=== PATIENT | male | born 1990 | race African-American/Black ===

== ENCOUNTER 2024-11-05 07:05 | Emergency (ER) | payer BC ==
--- NOTE | 2024-11-05 07:57 | RAD REPORT ---
EXAMINATION: XR PELVIS CLINICAL INDICATION: R hip injury TECHNIQUE: AP Pelvis examination was obtained. COMPARISON: No prior exam. FINDINGS: No evidence of fracture or dislocation. Normal alignment. No radiographic evidence of AVN seen. IMPRESSION: No significant bone or joint abnormality.
--- NOTE | 2024-11-05 08:01 | EDPHYS ---
Physician Documentation [facility] Name: Angel Francis Age: 34 yrs Sex: Male : 1990 Arrival Date: 11/05/2024 Time: 07:05 Bed 7 Private MD: ED Physician Danish Wesley HPI: 11/05 07:19 This 34 yrs old Black Male presents to ER via Ambulatory with complaints of Hip Pain. ec2 07:19 Patient arrives today for evaluation of right hip pain. Reports that he has been having ec2 pain with movement and ambulation in the past several days. Patient reports no specific falls injuries or trauma. Reports otherwise no other concerns.. Historical: - Allergies: 07:16 No Known Allergies; ll1 - Home Meds: 07:16 None [Active]; ll1 - PSHx: 07:16 None; ll1 - Immunization history:: Adult Immunizations up to date. - Infectious Disease History:: Denies. - Social history:: Smoking status: Patient denies any tobacco usage or history of. ROS: 07:19 Constitutional: as per hpi ec2 Exam: 07:19 Constitutional: GEN: NAD Head: atraumatic Eyes: EOMI Ears: External ears are ec2 normal. CV: regular rate LUNGS: no respiratory distress ABD: non-distended, no CVA TTP SKIN: no evidence of rashes MSK: no evidence of trauma, anterior right upper thigh with TTP without deformities or crepitus appreciated. Intact range of motion of the right hip. Vital Signs: 07:17 BP 126 / 93; Pulse 86; Resp 16; Temp 98.8; Pulse Ox 97% ; Weight 81.65 kg; Height 5 ft. ll1 8 in. ; Pain 8/10; 08:25 BP 115 / 89; Pulse 85; Resp 16; Pulse Ox 97% on R/A; ll1 07:17 Body Mass Index 27.37 (81.65 kg, 172.72 cm) ll1 07:17 Pain Scale: Adult ll1 MDM: 07:14 Medical Screening Exam initiated ec2 07:19 Data reviewed: vital signs, nurses notes. ED course: Patient arrives today for ec2 evaluation of right hip pain. Emanation yields MSK findings as above. Will obtain radiograph. Suspect MSK pain, doubt fracture, doubt dislocation, possible contusion.. 08:00 ED course: Hip x-ray independently reviewed and interpreted by me, shows no bony ec2 fracture. Patient otherwise well-appearing in no acute distress with good range of motion, doubt other process like septic joint, occult fracture given no underlying injury. Will discharge home. Return precautions given instructed follow-up PCP.. 11/05 07:19 Order name: Pelvis XRAY; Complete Time: 08:00 ec2 Administered Medications: 08:15 Drug: Methocarbamol PO 500 mg PO once Route: PO; ll1 08:33 Follow up: Response: No adverse reaction ll1 08:15 Drug: Lidoderm Topical Patch 5 % (700 mg/patch) 1 patches Topical once; leave on for 12 ll1 hours; cover most painful area; may cut into smaller pieces Route: Topical; Site: affected area; 08:33 Follow up: Response: No adverse reaction ll1 Disposition Summary: 11/05/24 08:00 Discharge Ordered Notes: Location: Home ec2 Condition: Stable ec2 Diagnosis - Thigh Pain ec2 Followup: ec2 - With: Raphael Buenrostro MD - When: - Reason: Recheck today's complaints Discharge Instructions: - Discharge Summary Sheet ec2 - Hip Pain ec2 Forms: - Work release form ec2 - Medication Reconciliation Form ec2 - Antibiotic Education ec2 - Prescription Opioid Use ec2 - Patient Portal Instructions ec2 - Leadership Thank You Letter ec2 Prescriptions: - Lidoderm 5 % Topical adhesive patch, medicated - apply 1 patch TOPICAL route every 24 hours leave on most painful area for up to ec2 12 hrs; 10 patch; Refills: 0, Product Selection Permitted - methocarbamol 500 mg Oral tablet - take 1 tablet ORAL route 4 times per day; 15 tablet; Refills: 0, Product ec2 Selection Permitted Signatures: Dispatcher [employer] Vianey Wheat RN RN ll1 Danish Wesley MD MD ec2 Corrections: (The following items were deleted from the chart) 07:20 07:19 Constitutional: GEN: NAD Head: atraumatic Eyes: EOMI Ears: External ears are ec2 normal. CV: regular rate LUNGS: no respiratory distress ABD: non-distended SKIN: no evidence of rashes MSK: no evidence of trauma, anterior right upper thigh with TTP without deformities or crepitus appreciated. Intact range of motion of the right hip. ec2 08:07 08:00 ED course: Hip x-ray independently reviewed and interpreted by me, shows no bony ec2 fracture. Will discharge home. Return precautions given instructed follow-up PCP.. ec2
--- NOTE | 2024-11-05 08:01 | ER ---
Nurse's Notes [facility] Name: Angel Francis Age: 34 yrs Sex: Male : 1990 Arrival Date: 11/05/2024 Time: 07:05 Bed 7 Private MD: Diagnosis: Thigh Pain Presentation: 11/05 07:17 Chief complaint: Patient states: R hip pain since 11/03. No known trauma or fever. ll1 Coronavirus screen: Client denies travel out of the [place] in the last 14 days. At this time, the client does not indicate any symptoms associated with coronavirus-19. Ebola Screen: Patient denies travel to an Ebola-affected area in the 21 days before illness onset. Initial Sepsis Screen: Does the patient meet any 2 criteria? No. Patient's initial sepsis screen is negative. Does the patient have a suspected source of infection? No. Patient's initial sepsis screen is negative. Risk Assessment: Do you want to hurt yourself or someone else? Patient reports no desire to harm self or others. Onset of symptoms was November 03, 2024. 07:17 Method Of Arrival: Ambulatory ll1 07:17 Acuity: FIONA 4 ll1 Triage Assessment: 07:18 General: Appears uncomfortable, Behavior is calm, cooperative, appropriate for age. ll1 Pain: Complains of pain in R hip Pain currently is 8 out of 10 on a pain scale. Quality of pain is described as aching, Is intermittent, Alleviated by rest, Aggravated by exercise, increased activity, weight bearing. Musculoskeletal: Circulation, motion, and sensation intact. Capillary refill < 3 seconds, in right fingers. Reports pain in R hip. Injury Description: no known injury. Historical: - Allergies: 07:16 No Known Allergies; ll1 - Home Meds: 07:16 None [Active]; ll1 - PSHx: 07:16 None; ll1 - Immunization history:: Adult Immunizations up to date. - Infectious Disease History:: Denies. - Social history:: Smoking status: Patient denies any tobacco usage or history of. Screenin:26 [facility] ED Fall Risk Assessment (Adult) History of falling in the last 3 months, ll1 including since admission No falls in past 3 months (0 pts) Confusion or Disorientation No (0 pts) Intoxicated or Sedated No (0 pts) Impaired Gait No (0 pts) Mobility Assist Device Used No (0 pt) Altered Elimination No (0 pt) Score/Fall Risk Level 0 - 2 = Low Risk Maintained a safe environment, Hourly rounding (assess needs \T\ fall precautionary measures) done. Abuse screen: Denies threats or abuse. Nutritional screening: No deficits noted. Tuberculosis screening: No symptoms or risk factors identified. Assessment: 08:32 Reassessment: No changes from previously documented assessment. Patient and/or family ll1 updated on plan of care and expected duration. Pain level reassessed. Patient is alert, oriented x 3, equal unlabored respirations, skin warm/dry/pink. Vital Signs: 07:17 BP 126 / 93; Pulse 86; Resp 16; Temp 98.8; Pulse Ox 97% ; Weight 81.65 kg; Height 5 ft. ll1 8 in. ; Pain 8/10; 08:25 BP 115 / 89; Pulse 85; Resp 16; Pulse Ox 97% on R/A; ll1 07:17 Body Mass Index 27.37 (81.65 kg, 172.72 cm) ll1 07:17 Pain Scale: Adult ll1 ED Course: 07:08 Patient arrived in ED. mr 07:09 Danish Wesley MD is Attending Physician. ec2 07:10 Arm band placed on Patient placed in an exam room, on a stretcher. ll1 07:16 Vianey Benavides, ROSANNE is Primary Nurse. ll1 07:18 Triage completed. ll1 07:55 Pelvis XRAY In Process Unspecified. EDMS 08:00 Raphael Buenrostro MD is Referral Physician. ec2 08:32 No provider procedures requiring assistance completed. Patient did not have IV access ll1 during this emergency room visit. 08:33 Patient has correct armband on for positive identification. Call light in reach. ll1 Provided Education on: take all prescribed medications as directed. Administered Medications: 08:15 Drug: Methocarbamol PO 500 mg PO once Route: PO; ll1 08:33 Follow up: Response: No adverse reaction ll1 08:15 Drug: Lidoderm Topical Patch 5 % (700 mg/patch) 1 patches Topical once; leave on for 12 ll1 hours; cover most painful area; may cut into smaller pieces Route: Topical; Site: affected area; 08:33 Follow up: Response: No adverse reaction ll1 Medication: 07:26 VIS not applicable for this client. ll1 Outcome: 08:00 Discharge ordered by . ec2 08:33 Discharged to home via wheelchair, 1 08:33 Condition: stable 08:33 Discharge instructions given to patient, Instructed on discharge instructions, follow up and referral plans. medication usage, Demonstrated understanding of instructions, follow-up care, medications, Prescriptions given X 2, 08:34 Patient left the ED. 1 Signatures: Dispatcher [employer] EDTracee Rosenthal, Reg Reg mr Vianey Benavides, RN RN 1 Danish Wesley MD MD ec2
[2024-11-05] MEDS ORDERED: LIDOCAINE 4% PATCH ONE (08:12)
[2024-11-05] MEDS ORDERED: methocarbamoL 500 MG TAB ONE (08:12)
[2024-11-05 09:06] VITALS: TEMP 98.8; O2SAT 97
[2024-11-05 09:07] VITALS: BP 115/89
== END 2024-11-05 08:34 | disposition home or self-care (01) ==
LOC: ER 07:05
DX: M79.651 Pain in right thigh (principal)
CPT/HCPCS: 72170; 99283; J2003

== ENCOUNTER 2024-12-07 06:16 | Emergency (ER) | payer BC ==
[2024-12-07 07:49] LABS: SARS-CoV-2 Antigen CONTROL BLUE LINE VIS/BG OK; SARS-CoV-2 Antigen Rapid Res Negative (Negative)
--- NOTE | 2024-12-07 08:58 | RAD REPORT ---
EXAM: Chest Single View HISTORY: COUGH COMPARISON: None. FINDINGS: LUNGS/PLEURA: Mild opacities are present in the lung bases bilaterally. MEDIASTINUM: The mediastinal silhouette is within normal limits. CARDIAC: The cardiac silhouette is within normal limits. UPPER ABDOMEN: No significant abnormality. BONES: No acute abnormality. LINES/TUBES/OTHER: N/A IMPRESSION: Mild ill-defined opacities in the lung bases suspicious for mild pneumonia.
[2024-12-07] MEDS ORDERED: levoFLOXacin 250 MG TAB ONE (09:07)
--- NOTE | 2024-12-07 09:07 | EDPHYS ---
Physician Documentation [facility] Name: Angel Francis Age: 34 yrs Sex: Male : 1990 Arrival Date: 12/07/2024 Time: 06:16 Bed 7 Private MD: ED Physician Dong Uribe HPI: 12/07 07:18 This 34 yrs old Black Male presents to ER via Ambulatory with complaints of Cough, rn Congestion, Fever. 07:18 The patient or guardian reports cough, flu symptoms. Onset: The symptoms/episode rn began/occurred 3 day(s) ago. Severity of symptoms: At their worst the symptoms were mild, in the emergency department the symptoms are unchanged. Modifying factors: The symptoms are alleviated by nothing, the symptoms are aggravated by nothing. The patient has not experienced similar symptoms in the past. The patient has not recently seen a physician. Patient reports cough and congestion with fever and myalgias for 3 days now. No known sick contacts. Reports mild shortness of breath. No hemoptysis. No abdominal pain or vomiting or diarrhea.. Historical: - Allergies: 06:34 No Known Allergies; ha1 - PMHx: 06:34 None; ha1 - Immunization history:: Adult Immunizations up to date. - Infectious Disease History:: Denies. - Social history:: Smoking status: Patient denies any tobacco usage or history of. - Family history:: not pertinent. - Hospitalizations: : No recent hospitalization is reported. ROS: 07:18 Constitutional: Positive for fever and chills Eyes: Negative for injury, pain, redness, rn and discharge, ENT: Positive for sore throat and congestion Cardiovascular: Negative for chest pain, palpitations, and edema, Respiratory: Positive for cough and shortness of breath Abdomen/GI: Negative for abdominal pain, nausea, vomiting, diarrhea, and constipation, MS/Extremity: Negative for injury and deformity, Skin: Negative for injury, rash, and discoloration, Neuro: Negative for headache, weakness, numbness, tingling, and seizure, Exam: 07:18 Constitutional: This is a well developed, well nourished patient who is awake, alert, rn and in no acute distress. Head/Face: Normocephalic, atraumatic. ENT: Mild pharyngeal erythema, no exudate, no stridor Neck: No Meningismus. Cardiovascular: Regular rate and rhythm. No pulse deficits. Respiratory: No increased work of breathing, no retractions or nasal flaring. Abdomen/GI: Soft, non-tender Skin: No rash, no cyanosis Neuro: Awake and alert, GCS 15 Vital Signs: 06:34 BP 111 / 75; Pulse 89; Resp 18 S; Temp 100.1; Pulse Ox 100% on R/A; Weight 79.38 kg; ha1 Height 5 ft. 9 in. ; 08:27 BP 105 / 68; Pulse 89; Resp 18; Pulse Ox 96% on R/A; ld1 06:34 Body Mass Index 25.84 (79.38 kg, 175.26 cm) ha1 MDM: 06:57 Medical Screening Exam initiated rn 09:03 Differential Diagnosis: Bronchitis Influenza Upper Respiratory Infection Viral Syndrome rn Pneumonia. Data reviewed: vital signs, nurses notes, lab test result(s), radiologic studies, plain films, and as a result, I will discharge patient. Counseling: I had a detailed discussion with the patient and/or guardian regarding the historical points, exam findings, and any diagnostic results supporting the discharge/admit diagnosis, lab results, radiology results, the need for outpatient follow up, to return to the emergency department if symptoms worsen or persist or if there are any questions or concerns that arise at home. Special discussion: I discussed with the patient/guardian in detail that at this point there is no indication for admission to the hospital. It is understood, however, that if the symptoms persist or worsen the patient needs to return immediately for re-evaluation. ED course: Number and complexity of problems addressed: Moderate Amount and/or complexity of data reviewed and analyzed: I have personally reviewed the results of multiple unique tests including but not limited to blood tests and imaging deemed necessary. Review of results reveal: Influenza A positive as well as pneumonia on chest x-ray Independent interpretation of tests: Xray chest image positive for pneumonia per my interpretation. shelter monitor interpretation: Normal sinus rhythm, rate , no ST elevation, no ectopia Pulse oximetry interpretation: Oxygen saturation 97% on RA, good wave form Risk of complications and/or morbidity or mortality of patient management: Patient is at moderate risk of morbidity based on: The need for prescription drug management . 12/07 06:58 Order name: SARS-COV-2 Antigen Rapid; Complete Time: 07:59 rn 12/07 06:58 Order name: Flu; Complete Time: 07:59 rn 12/07 06:58 Order name: Strep rn 12/07 07:52 Order name: Throat Culture EDMS 12/07 07:07 Order name: XRAY Chest (1 view); Complete Time: 08:59 rn Administered Medications: 09:10 Drug: LevOfloxacin PO 500 mg PO once Route: PO; bp 09:19 Follow up: Response: No adverse reaction bp 09:10 Drug: Oseltamivir PO 75 mg PO once Route: PO; bp 09:18 Follow up: Response: No adverse reaction bp Disposition Summary: 12/07/24 09:06 Discharge Ordered Notes: Location: Home rn Problem: new rn Symptoms: have improved rn Condition: Stable rn Diagnosis - Influenza due to identified novel influenza A virus with other respiratory rn manifestations - Pneumonia, unspecified organism rn Followup: rn - With: Private Physician - When: As needed - Reason: Recheck today's complaints, Re-evaluation by your physician Discharge Instructions: - Discharge Summary Sheet rn - Influenza, Adult rn - Community-Acquired Pneumonia, Adult rn Forms: - Medication Reconciliation Form rn - Antibiotic data governance analyst - Prescription Opioid Use rn - Patient Portal Instructions rn - Leadership Thank You Letter rn - Work release form bp Prescriptions: - Tamiflu 75 mg Oral capsule - take 1 tablet ORAL route every 12 hours for 5 days; 10 tablet; Refills: 0, rn Product Selection Permitted - levofloxacin 500 mg Oral tablet - take 1 tablet ORAL route once daily for 7 days; 7 tablet; Refills: 0, Product rn Selection Permitted Signatures: Dispatcher [employer] [facility] Dong Uribe MD MD rn Peltier, Brian RN RN Whit Perez, RN RN ha1
--- NOTE | 2024-12-07 09:07 | ER ---
Nurse's Notes [facility] Name: Angel Francis Age: 34 yrs Sex: Male : 1990 Arrival Date: 12/07/2024 Time: 06:16 Bed 7 Private MD: Diagnosis: Influenza due to identified novel influenza A virus with other respiratory manifestations;Pneumonia, unspecified organism Presentation: 12/07 06:34 Chief complaint: Patient states: sore throat, fever, body aches, and cough. ha1 06:34 Coronavirus screen: Client denies travel out of the [place] in the last 14 days. Ebola ha1 Screen: No symptoms or risks identified at this time. Initial Sepsis Screen: Does the patient meet any 2 criteria? No. Patient's initial sepsis screen is negative. Does the patient have a suspected source of infection? No. Patient's initial sepsis screen is negative. Risk Assessment: Do you want to hurt yourself or someone else? Patient reports no desire to harm self or others. Onset of symptoms was December 07, 2024. 06:34 Method Of Arrival: Ambulatory ha1 06:34 Acuity: FIONA 4 ha1 Triage Assessment: 06:34 General: Appears uncomfortable, Behavior is calm, cooperative. Pain: Complains of pain ha1 in body aches Pain currently is 8 out of 10 on a pain scale. Neuro: Level of Consciousness is awake, alert, obeys commands, Oriented to person, place, time, situation. Cardiovascular: Capillary refill < 3 seconds Patient's skin is warm and dry. Respiratory: Airway is patent Respiratory effort is even, unlabored, Respiratory pattern is regular, symmetrical. Respiratory: Reports cough that is non-productive. GI: No signs and/or symptoms were reported involving the gastrointestinal system. Abdomen is round non-distended. Historical: - Allergies: 06:34 No Known Allergies; ha1 - PMHx: 06:34 None; ha1 - Immunization history:: Adult Immunizations up to date. - Infectious Disease History:: Denies. - Social history:: Smoking status: Patient denies any tobacco usage or history of. - Family history:: not pertinent. - Hospitalizations: : No recent hospitalization is reported. Screenin:[address] [facility] ED Fall Risk Assessment (Adult) History of falling in the last 3 months, ld1 including since admission No falls in past 3 months (0 pts) Confusion or Disorientation No (0 pts) Intoxicated or Sedated No (0 pts) Impaired Gait No (0 pts) Mobility Assist Device Used No (0 pt) Altered Elimination No (0 pt) Score/Fall Risk Level 0 - 2 = Low Risk Oriented to surroundings, Hourly rounding (assess needs \T\ fall precautionary measures) done. Abuse screen: Denies threats or abuse. Denies injuries from another. Nutritional screening: No deficits noted. Tuberculosis screening: No symptoms or risk factors identified. Assessment: 08:27 General: Appears in no apparent distress. comfortable, Behavior is calm, cooperative, ld1 appropriate for age. Pain: Denies pain. Neuro: Level of Consciousness is awake, alert, obeys commands, Oriented to person, place, time, situation. Cardiovascular: Capillary refill < 3 seconds Patient's skin is warm and dry. Respiratory: Airway is patent Respiratory effort is even, unlabored, Breath sounds are clear bilaterally. GI: Abdomen is flat, non-distended. : No signs and/or symptoms were reported regarding the genitourinary system. EENT: No signs and/or symptoms were reported regarding the EENT system. Derm: No signs and/or symptoms reported regarding the dermatologic system. Musculoskeletal: No signs and/or symptoms reported regarding the musculoskeletal system. Vital Signs: 06:34 BP 111 / 75; Pulse 89; Resp 18 S; Temp 100.1; Pulse Ox 100% on R/A; Weight 79.38 kg; ha1 Height 5 ft. 9 in. ; 08:27 BP 105 / 68; Pulse 89; Resp 18; Pulse Ox 96% on R/A; ld1 06:34 Body Mass Index 25.84 (79.38 kg, 175.26 cm) ha1 ED Course: 06:32 Patient arrived in ED. gm2 06:48 Triage completed. ha1 06:57 Dong Uribe MD is Attending Physician. rn 08:27 Matilda Henriquez RN is Primary Nurse. ld1 08:27 Patient has correct armband on for positive identification. Placed in gown. Bed in low ld1 position. Call light in reach. Side rails up X2. Pulse ox on. NIBP on. Door closed. Noise minimized. Warm blanket given. 08:27 No provider procedures requiring assistance completed. ld1 08:41 XRAY Chest (1 view) In Process Unspecified. EDMS 09:18 Patient did not have IV access during this emergency room visit. bp Administered Medications: 09:10 Drug: LevOfloxacin PO 500 mg PO once Route: PO; bp 09:19 Follow up: Response: No adverse reaction bp 09:10 Drug: Oseltamivir PO 75 mg PO once Route: PO; bp 09:18 Follow up: Response: No adverse reaction bp Medication: 08:27 VIS not applicable for this client. ld1 Outcome: 09:06 Discharge ordered by . rn 09:18 Discharged to home ambulatory, bp 09:18 Condition: stable 09:18 Discharge instructions given to patient, Instructed on discharge instructions, follow up and referral plans. medication usage, Demonstrated understanding of instructions, follow-up care, medications, Prescriptions given X 2, 09:20 Patient left the ED. bp Signatures: Dispatcher [employer] EDMS Dong Uribe MD MD rn Peltier, Brian RN RN Matilda Fleming RN RN ld1 Whit Perez RN RN [email or web address] Юлия Meyers 2
[2024-12-07] MEDS ORDERED: OSELTAMIVIR 75 MG CAP PO ONE (09:08)
[2024-12-07 09:25] VITALS: TEMP 100.1
[2024-12-07 09:26] VITALS: BP 105/68; O2SAT 96
== END 2024-12-07 09:20 | disposition home or self-care (01) ==
LOC: ER 06:16
DX: J10.1 Influenza due to other identified influenza virus with other respiratory manifestations (principal); J18.9 Pneumonia, unspecified organism; Z11.52 Encounter for screening for COVID-19
CPT/HCPCS: 36415; 71045; 87070; 87081; 87804; 87811; 99283